=== PATIENT | female | born 1930 | race Caucasian/White ===

== ENCOUNTER 2017-05-16 02:11 | Inpatient (IN) | payer MEDICARE ==
[2017-05-16] MEDS ORDERED: Ondansetron HCl/PF 4 MG/2 ML Vial IVP PRN ×2 (05:59→07:36)
[2017-05-16] MEDS ORDERED: Ondansetron ODT 4 MG TAB SL PRN (05:59)
[2017-05-16] MEDS ORDERED: Sodium Chloride 0.9% 1,000 ML IV SCH (05:59)
[2017-05-16] MEDS ORDERED: Acetaminophen 325 MG TAB PO PRN ×2 (05:59→07:36)
[2017-05-16 06:09] VITALS: BMI 26.6
[2017-05-16] MEDS ORDERED: Milk Of Magnesia 30 ML UDCUP PO PRN (07:40)
[2017-05-16] MEDS ORDERED: Docusate 100 MG CAP PO PRN (07:40)
[2017-05-16] MEDS: Cyanocobalamin (Vitamin B-12) 1,000 MCG TAB PO SCH (08:41)
--- NOTE | 2017-05-16 08:41 | RAD ---
ABDOMEN TWO VIEWS CHEST ONE VIEW: History: 87-year-old female with abdominal pain and clinical concern for pancreatitis. Comparison: 05-07-17 FINDINGS: There is cardiomegaly with some bilateral vascular congestion and bilateral pleural effusions as well as some patchy bibasilar pulmonary parenchymal changes with little change from prior study. In the a bdomen, there is gas and fecal material in the colon. No evidence of large or small bowel obstruction . No overt calculus. IMPRESSION: Persistent cardiomegaly with some bilateral vascular congestion and patchy pleural and parenchymal op acity changes in the lung bases, essentially unchanged from 05-07-17. No significant acute process in the abdomen. POS: [facility]
[2017-05-16] MEDS ORDERED: Atorvastatin Calcium 40 MG TAB PO SCH (09:00)
[2017-05-16] MEDS ORDERED: Non-Formulary Item 1 EACH (Cyanocobalamin (Vitamin B-12) [Vitamin B12] 1,000 MCG) PO SCH (09:00)
[2017-05-16] MEDS: Lisinopril 10 MG TAB PO SCH (09:00)
[2017-05-16] MEDS ORDERED: CHOLECALCIFEROL PO SCH (09:00)
[2017-05-16] MEDS ORDERED: Lisinopril 20 MG TAB PO SCH (09:00)
[2017-05-16] MEDS: Enoxaparin Sodium 40 MG/0.4 ML SYRINGE SC SCH (09:01)
[2017-05-16] MEDS: Sodium Chloride 0.9% 1,000 ML IV SCH ×2 (09:02→18:16)
--- NOTE | 2017-05-16 09:51 | ULT ---
ULTRASOUND COMPLETE: HISTORY: Pancreatitis, chronic. COMPARISON: CT abdomen and pelvis 07/18/16. FINDINGS: Pancreas is unremarkable. There are a few calcifications in the pancreatic head. Hepatic echotexture is normal. The liver measures 14.5 cm in length. There is some gas within the l eft lobe of the liver. The spleen measures 7.9 x 5.2 x 5.4 cm. The gallbladder wall thickness is normal. The Cuenca's sign is negative. Common bile duct measures over 6 mm. The right kidney measures 11.1 x 4.55 cm and the left kidney measures 11.2 x 4.5 x 5.7 cm. There are multiple bilateral renal cysts. IMPRESSION: 1. Bilateral renal cysts. 2. Mildly dilated common bile duct containing some debris. Followup MRCP may be beneficial. POS: OFF
--- NOTE | 2017-05-16 12:41 | CON ---
DATE OF CONSULTATION: 05/16/2017 HISTORY OF PRESENT ILLNESS: The patient is an 87-year-old female patient of Dr. Yi's o was in her normal state of health until yesterday evening when she developed severe epigastric pain . She did not have any nausea or vomiting. She denies any weight loss, any fever, chills, any yi e in bowel function. The patient has had pancreatitis problems in the past and has been seen by Dr. Mccann in [place] in October of this year at which time she underwent ERCP and sphincterotomy. The p killian was recently hospitalized soon thereafter with pancreatitis. Last CT scan from 07/2016 just s howed pancreatitis. PAST MEDICAL HISTORY: Significant for recurrent pancreatitis, congestive heart failure, coronary art sophia disease, hypertension, gastroesophageal reflux disease. PAST SURGICAL HISTORY: Include coronary artery bypass, hysterectomy, ERCP and sphincterotomy, colon polyps. SOCIAL HISTORY: She does not smoke or drink. ALLERGIES: PENICILLIN. FAMILY HISTORY: Negative for GI or liver disease. MEDICATIONS: Show Aciphex 20 mg p.o. daily, vitamin B12 1000 mcg p.o. daily, atorvastatin 40 mg p.o. daily, Lasix 20 mg p.o. daily, metoprolol 50 mg p.o. daily, lisinopril 20 mg p.o. daily, aspirin 325 mg 1 p.o. daily, Advil p.r.n., vitamin D3 one p.o. daily. REVIEW OF SYSTEMS: Constitutional: No fever or chills, no weight loss. Eyes: No blurred vision, d ouble vision. ENT: No sore throat or earaches. Cardiovascular: No chest pain or palpitations. Pu lmonary: No shortness of breath, cough, or wheezing. Skin: No rashes. Neurologic: No numbness or seizure activity. PHYSICAL EXAMINATION: GENERAL: Shows an elderly white female in no acute distress. VITAL SIGNS: Temperature 98.2, pulse 60, respiratory rate 14, blood pressure 137/68. HEENT: Unremarkable. NECK: Supple. CHEST: Clear. CARDIOVASCULAR: Regular rate and rhythm without murmurs or gallops. ABDOMEN: Soft, tender in the upper abdomen without rebound or guarding. Bowel sounds are present an d normoactive. RECTAL: Deferred. EXTREMITIES: Normal. NEUROLOGIC: Nonfocal. LABORATORY DATA: Shows a normal chemistry panel except for an amylase of 507, lipase of 1268. CBC s hows hemoglobin of 9.3, hematocrit 25.1, white blood cell count of 16.4, platelet count is 328. Abdo nathaniel ultrasound shows mildly dilated common bile duct containing some debris. Followup MRCP may be beneficial. ASSESSMENT: 1. Recurrent pancreatitis. 2. Congestive heart failure. 3. Coronary artery disease. 4. Abnormal ultrasound showing debris in the common bile duct - I suspect this is not accurate findi ng considering the patient has normal LFTs and has undergone a previous sphincterotomy. RECOMMENDATIONS: 1. Serial H and H. 2. Serial amylase and lipase. 3. N.p.o. 4. Analgesics. 5. Aggressive IV fluids. 6. PPI. 7. Would consider trial of pancreatic enzyme replacement therapy once the patient resumes her diet.
[2017-05-16] MEDS ORDERED: Fentanyl 100 MCG/2 ML VIAL SLOW IVP PRN (13:26)
--- NOTE | 2017-05-16 14:06 | HP ---
PRIMARY CARE PHYSICIAN: Arianna Clarke D.O. CHIEF COMPLAINT: Abdominal pain. HISTORY OF PRESENT ILLNESS: Ms. Ovalle is a pleasant 87-year-old lady who was seen at [facility] on 05/16/2017. She was transferred here from the emergency room at [place]. She reports that she has a history of recurrent pancreatitis. She reports being hospitalized for 5 d ays in the hospital at [place] and being discharged home 8 days ago. She reports that she had epiga stric pain yesterday. She describes it as dull, 2/10, nonradiating, not accompanied by nausea or vom iting. She denies any fevers or chills. She denies any cough. REVIEW OF SYSTEMS: The following complete review of systems was negative, unless otherwise mentioned in the HPI or below: Constitutional: Weight loss or gain, ability to conduct usual activities. Sk in: Rash, itching. Eyes: Double vision, pain. ENT/Mouth: Nose bleeding, neck stiffness, pain, te nderness. Cardiovascular: Palpitations, dyspnea on exertion, orthopnea. Respiratory: Shortness of breath, wheezing, cough, hemoptysis, fever or night sweats. Gastrointestinal: Poor appetite, abdom inal pain, heartburn, nausea, vomiting, constipation, or diarrhea. Genitourinary: Urgency, frequenc y, dysuria, nocturia. Musculoskeletal: Pain, swelling. Neurologic/Psychiatric: Anxiety, depressio n. Allergy/Immunologic: Skin rash, bleeding tendency. PAST MEDICAL HISTORY: Significant for recurrent pancreatitis, ERCP, and sphincterotomy in 10/2016, c ongestive heart failure, coronary artery disease, hypertension, gastroesophageal reflux disease, aort ic fibrosis, and macrocytic anemia. PAST SURGICAL HISTORY: Significant for ERCP, sphincterotomy, coronary artery bypass graft surgery, h ysterectomy, and colon polyp removal. SOCIAL HISTORY: No history of tobacco use, alcohol use, or recreational drug use. FAMILY HISTORY: Diabetes mellitus and congestive heart failure in her mother, chronic kidney disease in her sister. ALLERGIES: ERYTHROMYCIN, PENICILLIN. CURRENT MEDICATIONS: Aspirin 325 mg daily, atorvastatin 20 mg daily, vitamin D3 2000 units 2 times a day, vitamin B12 1000 mcg daily, Colace 100 mg as needed, lisinopril 10 mg daily, Milk of Magnesia a s needed, and metoprolol succinate 25 mg daily. CODE STATUS: The patient is FULL CODE. PHYSICAL EXAMINATION: GENERAL: Ms. Ovalle is awake and alert, not in acute distress. VITAL SIGNS: Blood pressure is 119/57, pulse is 66. She is breathing at rate of 18 and saturating 9 4% on room air. She is afebrile. EYES: No scleral icterus. No conjunctival pallor. ENT: Moist mucosal membranes, no oropharyngeal erythema or exudates. NECK: Supple, nontender, normal range of movement. Trachea is midline. RESPIRATORY: Accessory muscles of breathing are not active. Chest wall movements are symmetric bila terally. LUNGS: Clear to auscultation without wheeze, rhonchi, or crepitations. CARDIOVASCULAR: S1 and S2 are heard, regular. Peripheral pulses are palpable. No carotid bruit, no pericardial rub. ABDOMEN: Soft, mild epigastric tenderness, no guarding or rigidity, bowel sounds heard, no hepatomeg karolyn, no splenomegaly. NEUROLOGIC: Cranial nerves II-XII intact. Deep tendon reflexes are 2+. MUSCULOSKELETAL: Power is 5/5 in all 4 extremities. SKIN: No rashes or subcutaneous nodules. LYMPHATIC: No cervical lymphadenopathy. PSYCHIATRIC: Normal mood, normal affect. The patient is oriented to person, place, and time. LABORATORY DATA: Ms. Ovalle's labs and investigations were reviewed. She has leukocytosis with 16, 400 white cells, of which 79% are neutrophils, macrocytic anemia with hemoglobin of 9.3, normal plate let count, normal electrolytes, normal AST, normal ALT, normal alkaline phosphatase, normal total oni irubin, elevated amylase of 507, and elevated lipase of 1268. ASSESSMENT AND PLAN: Ms. Ovalle is a pleasant 87-year-old lady who was seen at [facility] on 05/16[facility]2017. Her problem list includes: 1. Abdominal pain: Most likely secondary to recurrent pancreatitis. 2. Recurrent pancreatitis: The patient will be admitted to the hospital for further management incl uding intravenous fluids and pain medications. She will be kept n.p.o. Gastroenterology service aniceto l be consulted. Her lipase levels will be rechecked. 3. Coronary artery disease: Appears to be stable. 4. Congestive heart failure: Appears to be stable. 5. Gastroesophageal reflux disease: Stable. Many thanks for allowing me to participate in your patient's care. Please feel free to contact me wi any questions or concerns. LEVEL OF RISK: Moderate. LEVEL OF COMPLEXITY: Moderate.
[2017-05-16] MEDS: Atorvastatin Calcium 20 MG TAB PO SCH (20:09)
[2017-05-17] MEDS: Sodium Chloride 0.9% 1,000 ML IV SCH (00:20)
[2017-05-17 05:16] LABS: #Basophils 0.1 thou/uL (0.0-0.2); #Eosinphils 0.1 thou/uL (0.0-0.7); #Lymphocytes 1.4 thou/uL (1.20-3.40); #Monocytes 0.7 thou/uL (0.11-0.59); #Neutrophils 5.9 thou/uL (1.40-6.50); %Basophils 0.9 % (0.0-1.0); %Eosinophils 1.7 % (0.0-10.0); %Lymphocytes 17.4 % (21.0-51.0); %Monocytes 8.3 % (0.0-10.0); %Neutrophils 71.8 % (42.0-75.0); Mean Corpuscular HGB CONC 34.1 g/dL (32.0-36.0); Mean Corpuscular Hemoglobin 37.5 pg (27.0-31.0); Platelet Count 290 thou/uL (130-400); RBC Distribution Width 14.6 % (11.5-14.5); Red Blood Cell (RBC) Count 2.12 mill/uL (4.20-5.40); White Blood Cell (WBC) Count 8.2 thou/uL (4.8-10.8)
[2017-05-17 05:28] LABS: Anion Gap 12 mmol/L (10-20); BUN (Urea Nitrogen) 9 mg/dL (9.8-20.1); Calc. Creatinine Clearance 75 mL/min (70-130); Calcium 8.6 mg/dL (7.8-10.44); Carbon Dioxide 26 mmol/L (23-31); Chloride 104 mmol/L (98-107); Estimated GFR-MDRD Greater than 90; Glucose 98 mg/dL (83-110); Lipase 116 U/L (8-78); Sodium 138 mmol/L (136-145)
[2017-05-17] MEDS: Lisinopril 10 MG TAB PO SCH (09:00)
[2017-05-17] MEDS: Enoxaparin Sodium 40 MG/0.4 ML SYRINGE SC SCH (09:00)
[2017-05-17] MEDS: Cyanocobalamin (Vitamin B-12) 1,000 MCG TAB PO SCH (09:00)
--- NOTE | 2017-05-17 10:55 | PDOC.PN ---
- Subjective Encounter Start Date: 05/17/17 Encounter Start Time: 07:40 Pt seen for followup re: acute pancreatitis. Reports feeling better. - Objective Vital Signs & Weight: Vital Signs (12 hours) Temp Pulse Resp BP BP Pulse Ox 05/17/17 09:00 135/58 L 05/17/17 08:00 98.4 F 78 18 95 05/17/17 07:27 98.4 F 78 18 168/77 H 95 05/17/17 00:00 98.0 F 70 16 147/62 H 92 L Weight Admit Weight 167 lb 7 oz Weight 167 lb 7 oz I&O: 05/16/17 05/17/17 05/18/17 06:59 06:59 06:59 Intake Total 671 Balance 671 Result Diagrams: 05/17/17 04:39 05/17/17 04:39 Phys Exam - Physical Examination Constitutional: NAD HEENT: moist MMs Neck: supple Respiratory: clear to auscultation bilateral Cardiovascular: RRR Gastrointestinal: soft Mild epigastric tenderness, no guarding or rigidity Neurological: moves all 4 limbs Psychiatric: normal affect Skin: no rash Dx/Plan (1) Acute pancreatitis Code(s): K85.90 - ACUTE PANCREATITIS WITHOUT NECROSIS OR INFECTION, UNSP Status: Acute (2) CHF (congestive heart failure) Code(s): I50.9 - HEART FAILURE, UNSPECIFIED Status: Chronic (3) CAD (coronary artery disease) Code(s): I25.10 - ATHSCL HEART DISEASE OF [place] CORONARY ARTERY W/O ANG PCTRS Status: Chronic (4) HTN (hypertension) Code(s): I10 - ESSENTIAL (PRIMARY) HYPERTENSION Status: Chronic - Plan * . Clinically improving. Start clear fluid diet, advance as tolerated. Discontinue IV fluids. Monitor vital signs, titrate antihypertensives as needed. Start PPI. Review of Systems - Review of Systems Respiratory: negative: Cough, Dry, Shortness of Breath, Hemoptysis, SOB with Excertion, Pleuritic Pain, Sputum, Wheezing Cardiovascular: negative: chest pain, palpitations, orthopnea, paroxysmal nocturnal dyspnea, edema, light headedness Gastrointestinal: Abdominal Pain. negative: Nausea, Vomiting, Diarrhea, Constipation, Melena, Hematochezia - Medications/Allergies Allergies/Adverse Reactions: Allergies Allergy/AdvReac Type Severity Reaction Status Date / Time erythromycin base Allergy Verified 05/16/17 06:12 Penicillins Allergy Verified 05/16/17 06:12 Medications: Current Medications Acetaminophen (Tylenol) 650 mg PO Q4H PRN PRN Reason: Headache/Fever or Pain Atorvastatin Calcium (Lipitor) 20 mg PO HS COUNT INCLUDES THE [facility] Last Admin: 05/16/17 20:09 Dose: 20 mg Cholecalciferol (Vitamin D3) 2,000 units PO DAILY COUNT INCLUDES THE [facility] Last Admin: 05/17/17 09:00 Dose: 2,000 units Cyanocobalamin (Vitamin B-12) 1,000 mcg PO DAILY COUNT INCLUDES THE [facility] Last Admin: 05/17/17 09:00 Dose: 1,000 mcg Docusate Sodium (Colace) 100 mg PO PRN PRN PRN Reason: Constipation Enoxaparin Sodium (Lovenox) 40 mg SC 0900 COUNT INCLUDES THE [facility] Last Admin: 05/17/17 09:00 Dose: 40 mg Fentanyl (Sublimaze) 6.25 mcg SLOW IVP Q8H PRN PRN Reason: Pain Sodium Chloride (Normal Saline 0.9%) 1,000 mls @ 70 mls/hr IV .[id number] COUNT INCLUDES THE [facility] Last Admin: 05/17/17 00:20 Dose: Not Given Lisinopril (Zestril) 10 mg PO DAILY COUNT INCLUDES THE [facility] Last Admin: 05/17/17 09:00 Dose: 10 mg Magnesium Hydroxide (Milk Of Magnesium) 30 ml PO DAILYPRN PRN PRN Reason: Constipation Metoprolol Succinate (Toprol Xl) 25 mg PO DAILY COUNT INCLUDES THE [facility] Last Admin: 05/17/17 09:05 Dose: 25 mg Ondansetron HCl (Zofran) 4 mg IVP Q6H PRN PRN Reason: Nausea/Vomiting Pantoprazole Sodium (Protonix) 40 mg PO Q24HR COUNT INCLUDES THE [facility] Sodium Chloride (Flush - Normal Saline) 10 ml IVF Q12HR COUNT INCLUDES THE [facility] Last Admin: 05/17/17 09:01 Dose: Not Given Sodium Chloride (Flush - Normal Saline) 10 ml IVF PRN PRN PRN Reason: Saline Flush
--- NOTE | 2017-05-17 14:02 | PRG ---
DATE OF SERVICE: 05/17/2017 SUBJECTIVE: The patient is doing well today. She denies any abdominal pain, nausea, or vomiting. S he is tolerating clear liquids. OBJECTIVE: VITAL SIGNS: Temperature 98.4, pulse 75, respirations 20, blood pressure 150/66. CHEST: Clear. CARDIOVASCULAR: Regular rate and rhythm. ABDOMEN: Benign. LABORATORY DATA: Shows a lipase of 116, hemoglobin 8.0, hematocrit 23.3 with MCV of 110. Previous v itamin B12 and folate levels were normal. ASSESSMENT: 1. Acute on chronic pancreatitis. 2. Anemia. RECOMMENDATIONS: 1. Advance diet. 2. Pancreatic enzyme supplementation. 3. Follow hemoglobin and hematocrit. 4. Dr. Harding is covering, call if needed. 5. Have the patient follow up with Dr. Mariano as an outpatient.
[2017-05-17] MEDS: Pancrelipase DR 12000 1 CAP PO SCH (16:41)
[2017-05-17] MEDS ORDERED: Pancrelipase DR 12000 1 CAP PO SCH (17:00)
[2017-05-17] MEDS: Atorvastatin Calcium 20 MG TAB PO SCH (20:33)
[2017-05-18 04:36] LABS: #Basophils 0.1 thou/uL (0.0-0.2); #Eosinphils 0.1 thou/uL (0.0-0.7); #Lymphocytes 2.1 thou/uL (1.20-3.40); #Monocytes 0.9 thou/uL (0.11-0.59); #Neutrophils 3.8 thou/uL (1.40-6.50); %Eosinophils 1.5 % (0.0-10.0); %Lymphocytes 29.8 % (21.0-51.0); %Monocytes 12.9 % (0.0-10.0); %Neutrophils 54.8 % (42.0-75.0); Hemoglobin 8.2 g/dL (12.0-16.0); Mean Corpuscular HGB CONC 33.9 g/dL (32.0-36.0); Mean Corpuscular Hemoglobin 37.1 pg (27.0-31.0); Mean Platelet Volume 8.2 fL (7.4-10.4); Platelet Count 317 thou/uL (130-400); RBC Distribution Width 14.7 % (11.5-14.5); White Blood Cell (WBC) Count 6.9 thou/uL (4.8-10.8)
[2017-05-18 04:53] LABS: Anion Gap 11 mmol/L (10-20); BUN (Urea Nitrogen) 10 mg/dL (9.8-20.1); Calc. Creatinine Clearance 75 mL/min (70-130); Calcium 8.8 mg/dL (7.8-10.44); Carbon Dioxide 25 mmol/L (23-31); Chloride 105 mmol/L (98-107); Estimated GFR-MDRD Greater than 90; Glucose 104 mg/dL (83-110); Lipase 52 U/L (8-78); Potassium 3.8 mmol/L (3.5-5.1); Sodium 137 mmol/L (136-145)
[2017-05-18 08:17] VITALS: BP 129/53; TEMP 98.8
[2017-05-18] MEDS: Pancrelipase DR 12000 1 CAP PO SCH (08:22)
[2017-05-18] MEDS: Lisinopril 10 MG TAB PO SCH (08:23)
[2017-05-18] MEDS: Enoxaparin Sodium 40 MG/0.4 ML SYRINGE SC SCH (08:24)
[2017-05-18] MEDS: Cyanocobalamin (Vitamin B-12) 1,000 MCG TAB PO SCH (08:24)
--- NOTE | 2017-05-18 14:03 | DIS ---
DATE OF ADMISSION: 05/16/2017 DATE OF DISCHARGE: 05/18/2017 PRIMARY CARE PHYSICIAN: Arianna Clarke D.O. DISCHARGE DIAGNOSIS: Acute pancreatitis, recurrent. CONDITION OF PATIENT ON THE DAY OF DISCHARGE: Stable. I assessed Ms. Ovalle on the day of discharg e. She denies any chest pain or shortness of breath. She denies any abdominal pain. She is tolerat ing diet well. PHYSICAL EXAMINATION: VITAL SIGNS: Stable. HEART: S1 and S2 are heard, regular. LUNGS: Clear to auscultation bilaterally. ABDOMEN: Soft, nontender. Bowel sounds are heard. DISCHARGE MEDICATIONS: Pancrelipase 2 capsules 3 times a day with meals, Protonix 40 mg daily, metop rolol succinate 25 mg daily, Milk of Magnesia p.r.n., lisinopril 10 mg daily, docusate 100 mg as need ed, vitamin B12 1000 mcg daily, vitamin D3 2000 units 2 times a day, atorvastatin 20 mg daily, and as pirin 325 mg daily as needed. HOSPITAL COURSE: Ms. Ovalle is a pleasant 87-year-old lady who was admitted to [facility] for recurrent acute pancreatitis on 05/16/2017. She had an abdominal ultrasound done, which showed bilateral renal cyst and mildly dilated common bile duct containing some debris. She wa s seen by Gastroenterology Service, who felt that finding was not accurate because patient had normal LFTs and has undergone previous sphincterotomy. He recommended starting her on PPI as well as trial of pancreatic enzyme replacement therapy once the patient resumes her diet. She improved clinically during this hospitalization. Her lipase went from 1268 on 05/15/2017 to 52 o n 05/18/2017. She was tolerating diet well. She is being discharged home in a stable condition. CONSULTATIONS DURING THIS HOSPITALIZATION: Gastroenterology, Dr. Pernell Del Castillo. LABORATORY DATA: On the day of discharge, she has normal chem-7, normal lipase, white count 6,900, h emoglobin 8.2, and platelet count 317,000. Many thanks for allowing me to participate in your patient's care. Please feel free to contact me wi th any questions or concerns. DISCHARGE DESTINATION: Home. TOTAL AMOUNT OF TIME SPENT COORDINATING THIS DISCHARGE: 26 minutes.
--- NOTE | 2017-07-11 15:08 | EKG ---
Test Reason : Blood Pressure : / mmHG Vent. Rate : 066 BPM Atrial Rate : 066 BPM P-R Int : 182 ms QRS Dur : 086 ms QT Int : 468 ms P-R-T Axes : 079 -27 002 degrees QTc Int : 490 ms Sinus rhythm with occasional Premature ventricular complexes Minimal voltage criteria for LVH, may be normal variant Possible Anterior infarct , age undetermined Abnormal ECG Confirmed by LUCA ISAAC D.O. ([id number]), movie editor BROOKE SERRANO ([id number] on 07/11/2017 3:07:17 PM Referred By: Confirmed By:LUCA ISAAC D.O.
== END 2017-05-18 11:17 | disposition home or self-care (01) | DRG 440 ==
LOC: EDBD → ERS 02:11 → T4-B 04:00
PROVIDERS: ADMIT Internal Medicine; ATTEND Internal Medicine
DX: K85.90 Acute pancreatitis without necrosis or infection, unspecified (principal); I11.0 Hypertensive heart disease with heart failure; I50.9 Heart failure, unspecified; D64.9 Anemia, unspecified; Z95.1 Presence of aortocoronary bypass graft; K86.1 Other chronic pancreatitis; I25.10 Atherosclerotic heart disease of native coronary artery without angina pectoris; K21.9 Gastro-esophageal reflux disease without esophagitis
CPT/HCPCS: 36415; 74022; 76700; 80048; 83690; 85025; 93005; A4216; J1650

== ENCOUNTER 2017-09-21 12:07 | Inpatient (IN) | payer MEDICARE ==
[2017-09-21 12:37] LABS: #Basophils 0.1 thou/uL (0.0-0.2); #Eosinphils 0.1 thou/uL (0.0-0.7); #Lymphocytes 1.4 thou/uL (1.20-3.40); #Neutrophils 4.8 thou/uL (1.40-6.50); %Eosinophils 0.9 % (0.0-10.0); %Lymphocytes 19.1 % (21.0-51.0); %Monocytes 14.1 % (0.0-10.0); Hemoglobin 10.4 g/dL (12.0-16.0); Mean Corpuscular HGB CONC 34.5 g/dL (32.0-36.0); Mean Corpuscular Hemoglobin 37.4 pg (27.0-31.0); Mean Platelet Volume 8.1 fL (7.4-10.4); Platelet Count 274 thou/uL (130-400); RBC Distribution Width 14.4 % (11.5-14.5); Red Blood Cell (RBC) Count 2.78 mill/uL (4.20-5.40); White Blood Cell (WBC) Count 7.3 thou/uL (4.8-10.8)
[2017-09-21 12:57] LABS: ALT (SGPT) 8 U/L (8-55); AST (SGOT) 11 U/L (5-34); Albumin 4.3 g/dL (3.4-4.8); Alkaline Phosphatase 56 U/L (40-150); Anion Gap 10 mmol/L (10-20); BUN (Urea Nitrogen) 16 mg/dL (9.8-20.1); Bilirubin, Total 1.3 mg/dL (0.2-1.2); Calc. Creatinine Clearance 0 mL/min (70-130); Calcium 9.3 mg/dL (7.8-10.44); Carbon Dioxide 27 mmol/L (23-31); Chloride 106 mmol/L (98-107); Estimated GFR-MDRD 78; Globulin 2.5 g/dL (2.4-3.5); Glucose 128 mg/dL (83-110); Lipase 218 U/L (8-78); Potassium 3.9 mmol/L (3.5-5.1); Protein, Total 6.8 g/dL (6.0-8.3); Sodium 139 mmol/L (136-145)
[2017-09-21] MEDS ORDERED: Ondansetron ODT 4 MG TAB ONE (13:04)
[2017-09-21 13:09] LABS: Bilirubin Small (Negative); Blood, Urine Negative (Negative); Clarity CLEAR (Clear); Glucose, Urine (Dipstick) Negative (Negative); Leukocyte Moderate (Negative); Nitrite Negative (Negative); Protein, Urine (Dipstick) Negative (Neg-Trace); Specific Gravity, Urine 1.024 (1.002-1.036); pH, Urine 5.5 (5.0-9.0)
[2017-09-21 13:11] LABS: Bacteria/HPF None Seen HPF (None Seen); Hyaline Casts/LPF 4-6 HYALINE CAST LPF (0-3 Hyaline); Pathc Cast-AUWi Flag 1.59 (0-2.49); Squamous Epithelial 0-3 HPF (0-3)
[2017-09-21 13:26] LABS: RBC/HPF 0-3 HPF (0-3)
[2017-09-21] MEDS ORDERED: cefTRIAXone\\ROCEPHIN 1 GM VIAL ONE (13:48)
--- NOTE | 2017-09-21 14:17 | CT ---
CT ABDOMEN AND PELVIS WITH IV CONTRAST: TECHNIQUE: Multiple axial tomograms were obtained through the abdomen and pelvis with IV enhancement. INDICATION: Abdominal pain. History of pancreatitis. COMPARISON: Comparison is made to an abdominal CT of 09/06/14 which did demonstrate pancreatitis involving the odell creatic body and tail. Mild prominence of the pancreatic duct. Correlation is also made to MRI of abdomen of 02/24/16. FINDINGS: Parenchymal haziness in the left lung base consistent with either atelectasis or infiltrate. There is pneumobilia seen in the liver with air in the biliary ducts. There is gas seen in the commo n bile duct and in the cystic duct. A tiny amount of air in the pancreatic ducts. Correlate regardi ng prior history of sphincterotomy in this patient that would explain the pneumobilia. There is a 1 cm calculus in the head of the pancreas which appears to be obstructing the pancreatic d uct. There is significant dilatation of the pancreatic duct to this calcification. There appears to be mild inflammatory change involving the body and tail of the pancreas and I cannot exclude early p ancreatitis. Adrenal glands unremarkable. Kidneys show no hydronephrosis. There are bilateral renal cysts which appear stable from the prior e xam. Small bowel loops are normal caliber. Colon unremarkable. Urinary bladder unremarkable. Aorta is c alcified but normal caliber. IMPRESSION: 1. Pneumobilia. Correlate regarding history of prior sphincterotomy that would explain this finding . 2. Dilated pancreatic duct with evidence of a 1 cm stone in the head of the pancreas which appears t o be obstructing this duct. 3. Mild inflammatory changes surrounding the body and tail of the pancreas. Pancreatitis cannot be excluded. No significant fluid or pseudocyst. 4. Bilateral renal cystic lesions appear stable. 5. Atelectasis and/or infiltrate in the left lung base. POS: [facility]
[2017-09-21 16:01] VITALS: BMI 25.2
[2017-09-21] MEDS ORDERED: Sodium Chloride 0.9% 1,000 ML IV SCH (16:15)
[2017-09-21] MEDS ORDERED: ISOVUE-370 76%-LOCM 1 ML ONE (16:39)
[2017-09-21] MEDS ORDERED: Aspirin 325 MG TAB PO PRN (17:44)
--- NOTE | 2017-09-21 18:55 | RAD ---
TWO VIEWS OF THE CHEST: 09/21/17 COMPARISON: 09/08/14 HISTORY: Evaluate lung parenchyma, abnormal CT examination. FINDINGS: The cardiac silhouette is enlarged. There is atherosclerotic calcification in the aortic arch with to rtuosity of the descending thoracic aorta. Midline sternotomy wires are present. There is mild increa sed linear density in the lung bases, left greater than right, nonspecific. There is no pneumothorax, pleural fluid, focal consolidation, or alveolar edema. IMPRESSION: Mild increased linear density in the lung bases, left greater than right. Findings may signify infect ious pneumonitis or scar/volume loss. No lobar consolidation or alveolar edema is evident. POS: [facility]
--- NOTE | 2017-09-21 20:25 | CON ---
DATE OF CONSULTATION: 09/21/2017 REASON FOR CONSULTATION: Acute on chronic pancreatitis. HISTORY OF PRESENT ILLNESS: Xochilt Ovalle is a very pleasant 87-year-old woman, a patient of my GI colleague, Dr. Cindy Mariano. She has a past medical history of chronic pancreatitis, but with multiple acute exacerbations over the past several years. She has undergone cholecystectomy in the past. In 09/2015 , she was seen by Dr. Mckee at [facility] in [place] for ERCP. 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 She underwent a dilation of her pancreatic duct stricture as well as pancreatic duct stent placement. In 2016, she was seen again by Dr. Mckee for ERCP and at that time was found to have some sludge and stones in the common bile duct. She underwent repeat biliary sphincterotomy and balloon sweep of the bile duct with multiple stones removed. She has been hospitalized here since then in April and May of 2017, both times with mild episode of acute exacerbation of pancreatitis treated conservatively. She has recently been started on Creon tablets and felt that she had been doing quite well until the past couple of days. She denies any chronic symptoms between attacks. She reports that for the past 2 days, she has had slowly escalating characteristic pain in the epigastrium which became unbearable today and prompted her presentation. There has been no nausea or vomiting with this. No change in bowel habits. She has a bowel movement about every 3 days with no melena or hematochezia. With this episode, there has been no fever, no presyncopal symptoms. She has received morphine in the ER and feels only marginal improvement in her pain. Laboratory studies show only a mild elevation of total bilirubin to 1.3, but otherwise normal LFTs. Her lipase is very mildly elevated to 218, but a CT of the abdomen and pelvis demonstrates what appears to be a 1 cm calculus in the pancreatic head as well as pancreatic ductal dilation, which was read as possibly related to obstruction from the stone. There is mild inflammatory stranding around the pancreatic body and tail and the scan is otherwise normal. The patient is currently being admitted to the hospital for pain control and treatment of pancreatitis. She is n.p.o. now. REVIEW OF SYSTEMS: Full review of systems including constitutional, head, eyes , ears, nose, throat, GI, , cardiovascular, respiratory, musculoskeletal, and neurologic systems is negative except as noted in the HPI. PAST MEDICAL HISTORY: Recurrent pancreatitis, congestive heart failure, coronary artery disease, hypertension, gastroesophageal reflux disease, coronary artery bypass, hysterectomy, colon polyps, ERCP with pancreatic duct stent in 09/2015, ERCP with repeat biliary sphincterotomy and common bile duct sweep on 10/2016, cholecystectomy. SOCIAL HISTORY: No smoking or alcohol use. FAMILY HISTORY: Negative for GI or liver disease. ALLERGIES: PENICILLIN. MEDICATIONS: Aciphex, vitamin B12, atorvastatin, Lasix, metoprolol, lisinopril , aspirin, Advil p.r.n., vitamin D3, Creon tablets with meals. PHYSICAL EXAMINATION: VITAL SIGNS: Pulse 59, blood pressure 134/107. GENERAL: An 87-year-old woman lying in bed, in mild distress from abdominal pain. SKIN: No jaundice, no rashes were palpable. EYES: No scleral icterus. Extraocular movements intact. ENT: Mucous membranes moist, no oral lesions. LYMPH: No submandibular or supraclavicular lymphadenopathy. THYROID: Nontender to palpation. HEART: Regular rate and rhythm. LUNGS: Clear to auscultation bilaterally. ABDOMEN: Nondistended. Bowel sounds are present. The abdomen is soft. There is tenderness to palpation in the epigastrium, nontender elsewhere in the abdomen. No guarding, rebound tenderness. EXTREMITIES: No peripheral edema. VESSELS: Radial pulses 2+ bilaterally. NEUROLOGICAL: Cranial nerves II-XII intact bilaterally. No focal deficits. LABORATORY STUDIES: WBC 7.3, hemoglobin 10.4, platelets 274. Sodium 139, potassium 3.9, BUN 16, creatinine 0.71. Lipase is elevated to 218. Total bilirubin 1.3, otherwise normal LFTs with alkaline phosphatase 56, AST 11, ALT 8 , albumin 4.3. Urinalysis shows moderate leukocyte esterase. IMAGING STUDIES: CT of the abdomen and pelvis demonstrates pneumobilia, which is consistent with prior biliary sphincterotomy. There was a 1 cm calculus in the pancreatic head and dilation of the main pancreatic duct which was interpreted as possible obstruction from the calculus. There are mild inflammatory changes around the pancreatic body and tail. The CT is otherwise normal. ASSESSMENT AND PLAN: 1. Acute on chronic pancreatitis. 2. Pancreatic duct calculus. Given the relatively low lipase as well as prior imaging findings demonstrating pancreatic duct stricture with proximal dilation, I doubt that there is complete pancreatic duct obstruction by this calculus. My impression would be that these are more chronic findings. Her pain is characteristic and consistent with her prior episodes of pancreatitis, but otherwise clinical and laboratory parameters are favorable. At this time, I would recommend supportive care with n.p.o. status, IV fluids and analgesia as needed. I would hope and anticipate that this acute episode would resolve within the next 2-3 days, as have her prior episodes. Regarding possible intervention on the pancreatic duct calculus, we really do not have specific pancreatic ductal intervention expertise here. I do think the patient would benefit from repeat ERCP at [facility] with Dr. Mckee in the coming weeks. We will try to help arrange for this following hospital discharge. There does not appear to be any urgent indication for ERCP at this time. Thank you for the consultation. GI can follow along. ANTONIA
[2017-09-21] MEDS: Famotidine/PF 20 mg/2ml Vial SLOW IVP SCH (21:39)
--- NOTE | 2017-09-21 21:46 | HP ---
CHIEF COMPLAINT: Abdominal pain. HISTORY OF PRESENT ILLNESS: This patient is an 87-year-old female who has a history of significant p ancreatic disease. Patient was most recently admitted here in May with similar symptoms. Appar ently, the patient has history of recurrent pancreatitis and saw Dr. Toscano in [facility] [place] for an ERCP and sphincterotomy as recently as 10/2016. She was admitted in May with evidence of sludge in h er pancreatic duct and pancreatitis. At that time, she was seen by GI here and they felt that it was likely not obstruction because of the normal liver enzymes. The patient was treated with conservati ve management and be placed on pancreatic enzymes following her discharge. She was also treated with PPI. She had a very short stay. Her daughter indicates that she typically has some type of these s ymptoms every 6 months going back to 2014. Patient reports that she was in her usual state of relati vely good health until 2 days ago when she had the sudden onset of epigastric pain that has been a st valerie crescendo since that time. She states it is not sharp, but dull and gradually worsening. Pain is located in the epigastrium. She has had no fevers, chills, nausea, vomiting. Currently, she is i mproved with her pain after receiving several doses of morphine. REVIEW OF SYSTEMS: A 10 point review of systems was negative other than those things mentioned in th e history of present illness. The patient does actually report that she has some mild hearing issues , but they are very benign. PAST MEDICAL HISTORY: As noted above, significant for the recurrent pancreatitis with ERCP and sphin cterotomy. She had a history of congestive heart failure, coronary artery disease, hypertension, gas troesophageal reflux, aortic fibrosis and macrocytic anemia. PAST SURGICAL HISTORY: ERCP with sphincterotomy, coronary artery bypass graft, hysterectomy, colon p olyp removal. FAMILY HISTORY: Notable for congestive heart failure in her mother, chronic kidney disease in her si ster and diabetes in her mother. SOCIAL HISTORY: Patient is a nonsmoker, nondrinker, nondrug user. She is . She reports that her daughter would be her surrogate decision maker. She also reports that she would like to have fu ll resuscitative efforts unless it is determined that she would be terminal and does not want anythin g long-term. ALLERGIES: ERYTHROMYCIN BASE, and PENICILLIN. HOME MEDICATIONS: Atorvastatin 20 mg p.o. every day, aspirin 325 every day, vitamin D3 two p.o. constantin y, B12 of 1000 mcg p.o. daily, Prinivil 10 mg daily, Colace 100 mg daily p.r.n., metoprolol 25 mg argelia ly, pantoprazole 40 mg p.o. daily, and Creon 12,000 units 2 p.o. t.i.d. with meals. PHYSICAL EXAMINATION: VITAL SIGNS: Temperature 96.8, pulse 73, respirations 18, O2 sats 95% on room air, BP ranged from 12 9/53-170/65. GENERAL APPEARANCE: Age appropriate female. She is in no distress. She is awake, alert, and orient ed, pleasant, cooperative. HEENT: PERRL. No OP lesions. NECK: Supple and symmetric with no lymphadenopathy or JVD. CARDIOVASCULAR: Regular but in a trigeminal type pattern. No murmurs. LUNGS: Clear to auscultation bilaterally. ABDOMEN: Soft and nondistended. There is significant tenderness to palpation with some voluntary gu arding in the epigastric region. EXTREMITIES: Warm and dry with no edema. LABORATORY DATA: White count 7.3, hemoglobin 10.4, MCV 108, platelets 274. Chemistries are normal e xcept for a glucose of 128 and a total bilirubin of 1.3, AST is 11, ALT is 8, alkaline phosphatase 56 , albumin 4.3, lipase is 218. Urinalysis shows small bilirubin, moderate leukocyte esterase with 7-1 0 white cells and 0-[address] of the abdomen and pelvis reveals a 1-cm calculus in the head of the pancreas which appears to be obstructing the pancreatic duct. There is significant dilatation o f the pancreatic duct to the calcification. There appears to be mild inflammatory changes involving the body and tail of the pancreas and pancreatitis cannot be excluded. Otherwise, no acute findings. IMPRESSION AND PLAN: 1. Abdominal pain in a patient with a history of recurrent pancreatitis who has a CAT scan indicatin g there is a duct stone in the head of the pancreas causing some ductal obstruction and likely pancre atitis. The patient will be admitted. She will be on IV fluids. She will have pain control with mo rphine. The key account executive will be consulted. We will continue with acid suppressant medication s in the meantime. 2. History of coronary artery disease. We will try to keep her on her aspirin, even though she is g enerally going to be n.p.o. We will also maintain the AYAN inhibitor and the beta debora. 3. Hypertension. Continue with the metoprolol and lisinopril. 4. History of macrocytosis. Her counts appear to be stable. No intervention indicated.
[2017-09-22] MEDS: Famotidine/PF 20 mg/2ml Vial SLOW IVP SCH ×2 (09:27→20:22)
[2017-09-22] MEDS: Lisinopril 10 MG TAB PO SCH (09:28)
--- NOTE | 2017-09-22 10:56 | PRG ---
DATE OF SERVICE: 09/22/2017 SUBJECTIVE: Ms. Ovalle has no new complaints. She continues to have pain in the epigastrium, which she says is a bit better, but she did receive morphine overnight, last administration was about 3 ho urs ago. She says she is feeling hungry and not nauseated, but the pain does remain constant. She h as remained hemodynamically stable. PHYSICAL EXAMINATION: VITAL SIGNS: Temperature 98.6, pulse 62, blood pressure 125/62, 94% oxygen saturation on room air. GENERAL: No acute distress. HEART: Regular rate and rhythm. LUNGS: Clear to auscultation bilaterally. ABDOMEN: Bowel sounds are present, soft, tender to palpation in the epigastrium, but no guarding, re bound tenderness. EXTREMITIES: No peripheral edema. LABORATORY STUDIES: No new labs this morning. ASSESSMENT AND PLAN: 1. Acute on chronic pancreatitis. 2. Pancreatic duct calculus. Continue with supportive care, clinical parameters and initial laboratory parameters were all favorab le. I think that if her pain medicine requirements have declined by the end of the day, she could po tentially be started on a clear liquid diet to see how she tolerates this. We would recheck LFTs and lipase tomorrow. We will still plan for outpatient re-referral back to Dr. Mckee in [place] on an outpatient basis following discharge.
--- NOTE | 2017-09-22 13:46 | PDOC.PN ---
- Subjective Encounter Start Date: 09/22/17 Encounter Start Time: 13:44 NURSE REPORTS THAT THE PATIENT GOT A LITTLE CONFUSED WITH THE MORPHINE. SHE TOOK OUT HER IV AND GOT DRESSED TO LEAVE. CURRENTLY THE PATIENT HAS SOME INSIGHT. SHE DOES CONTINUE TO HAVE SOME PAIN, BUT IT IS BETTER. - Objective Resuscitation Status: Resuscitation Status FULL:Full Resuscitation MAR Reviewed: Yes Vital Signs & Weight: Vital Signs (12 hours) Temp Pulse Resp BP Pulse Ox 09/22/17 12:10 98.4 F 74 18 113/69 93 L 09/22/17 07:25 98.6 F 62 14 125/62 94 L 09/22/17 04:22 98.4 F 73 16 150/54 H 94 L Weight Admit Weight 156 lb 5.488 oz Weight 156 lb 5.488 oz I&O: 09/21/17 09/22/17 09/23/17 06:59 06:59 06:59 Intake Total 0 Balance 0 Result Diagrams: 09/21/17 12:28 09/21/17 12:28 Phys Exam - Physical Examination Constitutional: NAD Neck: no JVD, supple Respiratory: no wheezing, no rales, no rhonchi, clear to auscultation bilateral Cardiovascular: RRR, no significant murmur Gastrointestinal: soft, no distention TTP IN EPIGASTRIUM. NO GUARDING Musculoskeletal: no edema Neurological: non-focal Deviation from normal: PATIENT IS ORIENTED TO PERSON AND PLACE. ESSENTIALLY BASELINE. Skin: no rash, normal turgor Dx/Plan (1) Pancreatic duct calculus Code(s): K86.89 - OTHER SPECIFIED DISEASES OF PANCREAS Status: Acute Plan: GI FOLLOWING. BELIEVE THE STONE IS NOT COMPLETELY OBSTRUCTING. REC. TREATMENT LIKE USUAL PANCREATITIS. NEEDS OUTPATIENT FOLLOW UP IN [place]. (2) Acute pancreatitis Code(s): K85.90 - ACUTE PANCREATITIS WITHOUT NECROSIS OR INFECTION, UNSP Status: Acute Plan: FLUIDS, PAIN MEDS AND BOWEL REST. RECHECK LIPASE AND LFT'S IN AM. (3) CAD (coronary artery disease), [place] coronary artery Code(s): I25.10 - ATHSCL HEART DISEASE OF [place] CORONARY ARTERY W/O ANG PCTRS Status: Chronic Plan: CONTINUE BETA FABOI AND ASA. (4) Essential hypertension Code(s): I10 - ESSENTIAL (PRIMARY) HYPERTENSION Status: Acute Plan: CONTINUE ACEI, BETA FABIO. (5) Macrocytosis Code(s): D75.89 - OTHER SPECIFIED DISEASES OF BLOOD AND BLOOD-FORMING ORGANS Status: Acute - Plan * ABOVE.
[2017-09-22] MEDS: Sodium Chloride 0.9% 1,000 ML IV SCH ×2 (15:10→17:59)
[2017-09-23] MEDS: Sodium Chloride 0.9% 1,000 ML IV SCH ×3 (03:52→21:13)
[2017-09-23 05:50] LABS: ALT (SGPT) 9 U/L (8-55); AST (SGOT) 13 U/L (5-34); Albumin 3.6 g/dL (3.4-4.8); Alkaline Phosphatase 48 U/L (40-150); Anion Gap 13 mmol/L (10-20); BUN (Urea Nitrogen) 12 mg/dL (9.8-20.1); Bilirubin, Total 1.8 mg/dL (0.2-1.2); Calc. Creatinine Clearance 78 mL/min (70-130); Calcium 8.4 mg/dL (7.8-10.44); Carbon Dioxide 20 mmol/L (23-31); Chloride 106 mmol/L (98-107); Estimated GFR-MDRD Greater than 90; Globulin 2.2 g/dL (2.4-3.5); Glucose 92 mg/dL (83-110); Lipase 26 U/L (8-78); Potassium 3.5 mmol/L (3.5-5.1); Protein, Total 5.8 g/dL (6.0-8.3); Sodium 135 mmol/L (136-145)
--- NOTE | 2017-09-23 08:17 | PRG ---
DATE OF SERVICE: 09/23/2017 SUBJECTIVE: Ms. Ovalle says she is feeling pretty well this morning. She was able to get good slee p last night. She has not required any morphine for the past 24 hours. She says her abdominal pain is much improved, though it is oil process stillman to palpation. She is not really hungry, but she has had no nausea or vomiting. No bowel movement. Lipase has trended down to normal. OBJECTIVE: VITAL SIGNS: Temperature 98.5, pulse 77, blood pressure 160/53, 95% oxygen saturation on room air. GENERAL: No acute distress. HEART: Regular rate and rhythm. LUNGS: Clear to auscultation bilaterally. ABDOMEN: Bowel sounds are present. The abdomen is soft. There is tenderness to palpation in the ep igastrium, but no guarding or rebound tenderness. EXTREMITIES: No peripheral edema. LABORATORY STUDIES: Sodium 135, potassium 3.5, BUN 12, creatinine 0.55, total bilirubin 1.8, alkalin e phosphatase 48, AST 13, ALT 9, albumin 3.6, lipase has normalized down to 26. WBC 7.3, hemoglobin 10.4, hematocrit 30.1, platelets 274. ASSESSMENT AND PLAN: 1. Acute on chronic pancreatitis. It appears her acute episode is resolving. Lipase is normalized and abdominal pain is much improved. I will write for clear liquid diet this morning. If she tolera chip this, I think the diet could be rapidly advanced as tolerated, and when she is tolerating oral in take, she can be discharged from the hospital. 2. Pancreatic duct calculus. Our office will arrange for referral back to Dr. Mckee in [facility] consideration of repeat ERCP, due to recurrent episodes of pancreatitis with pancreatic duct calcul us. No plan for urgent ERCP, and no need for hospital transfer. This can be done on an outpatient b asis.
[2017-09-23] MEDS: Famotidine/PF 20 mg/2ml Vial SLOW IVP SCH ×2 (09:36→21:08)
[2017-09-23] MEDS: Lisinopril 10 MG TAB PO SCH (09:37)
--- NOTE | 2017-09-23 09:45 | PDOC.PN ---
- Subjective Encounter Start Date: 09/23/17 Encounter Start Time: 07:20 Pt seen for followup re: acute pancreatitis. Feels better. Abdo pain better. No nausea or vomiting. No fevers or chills. No chest pain or shortness of breath. - Objective Resuscitation Status: Resuscitation Status FULL:Full Resuscitation MAR Reviewed: Yes Vital Signs & Weight: Vital Signs (12 hours) Temp Pulse Resp BP Pulse Ox 09/23/17 07:16 99.2 F 82 14 158/67 H 94 L 09/23/17 00:01 98.5 F 77 16 160/53 H 95 Weight Admit Weight 156 lb 5.488 oz Weight 156 lb 5.488 oz I&O: 09/22/17 09/23/17 09/24/17 06:59 06:59 06:59 Intake Total 0 2014 Balance 0 2014 Result Diagrams: 09/21/17 12:28 09/23/17 04:35 Additional Labs: Labs reviewed by me Phys Exam - Physical Examination Constitutional: NAD HEENT: moist MMs, sclera anicteric, oral pharynx no lesions, 2+ tonsils Neck: no nodes, no JVD, supple, full ROM Respiratory: no wheezing, no rales, no rhonchi, clear to auscultation bilateral Cardiovascular: RRR, no rub S1, S2 Gastrointestinal: soft, no distention, positive bowel sounds mild epigastric tenderness, no guarding or rigidity Neurological: moves all 4 limbs Psychiatric: normal affect, A&O x 3 Dx/Plan (1) Acute pancreatitis Code(s): K85.90 - ACUTE PANCREATITIS WITHOUT NECROSIS OR INFECTION, UNSP Status: Acute Comment: Improving, lipase normal. Pt on clear fluid diet. (2) CAD (coronary artery disease) Code(s): I25.10 - ATHSCL HEART DISEASE OF [place] CORONARY ARTERY W/O ANG PCTRS Status: Chronic Comment: stable (3) CHF (congestive heart failure) Code(s): I50.9 - HEART FAILURE, UNSPECIFIED Status: Chronic Comment: stable (4) HTN (hypertension) Code(s): I10 - ESSENTIAL (PRIMARY) HYPERTENSION Status: Chronic Comment: Monitor vital signs, titrate antihypertensives as needed - Plan * . Review of Systems - Review of Systems Constitutional: negative: fever, chills, sweats, weakness, malaise Respiratory: negative: Cough, Shortness of Breath, SOB with Excertion, Pleuritic Pain, Wheezing Cardiovascular: negative: chest pain, palpitations, orthopnea, paroxysmal nocturnal dyspnea, edema, light headedness Gastrointestinal: Abdominal Pain. negative: Nausea, Vomiting, Diarrhea, Constipation, Melena, Hematochezia Genitourinary: negative: Dysuria, Frequency, Incontinence, Hematuria, Retention - Medications/Allergies Allergies/Adverse Reactions: Allergies Allergy/AdvReac Type Severity Reaction Status Date / Time erythromycin base Allergy Verified 05/16/17 06:12 Penicillins Allergy Verified 05/16/17 06:12 Medications: Current Medications Aspirin (Aspirin) 325 mg PO DAILY PRN PRN Reason: Pain Famotidine (Pepcid) 20 mg SLOW IVP Q12HR [facility] Last Admin: 09/23/17 09:36 Dose: 20 mg Levofloxacin 500 mg/ Device 100 mls @ 100 mls/hr IVPB 1830 [facility] Last Admin: 09/22/17 17:28 Dose: 100 mls Sodium Chloride (Normal Saline 0.9%) 1,000 mls @ 75 mls/hr IV .[id number] [facility] Last Admin: 09/23/17 03:52 Dose: Not Given Lisinopril (Zestril) 10 mg PO DAILY [facility] Last Admin: 09/23/17 09:37 Dose: 10 mg Metoprolol Succinate (Toprol Xl) 25 mg PO DAILY [facility] Last Admin: 09/23/17 09:37 Dose: 25 mg Morphine Sulfate (Morphine) 4 mg SLOW IVP Q4H PRN PRN Reason: Severe Pain (7-10) Last Admin: 09/22/17 06:20 Dose: 4 mg
[2017-09-23] MEDS: Pancrelipase DR 12000 1 CAP PO SCH ×2 (13:01→17:54)
[2017-09-23] MEDS: Acetaminophen 325 MG TAB PO PRN ×2 (17:54→22:01)
--- NOTE | 2017-09-23 18:29 | RAD ---
PORTABLE UPRIGHT FRONTAL CHEST RADIOGRAPH: 09/23/2017 HISTORY: Fever. COMPARISON: 06/30/2015 FINDINGS: Increased linear interstitial density noted, stable. Midline sternotomy wires and prominence of the cardiac silhouette is stable as well. There is no pneumothorax, pleural fluid, focal consolidation, or alveolar edema. IMPRESSION: Stable appearance of the chest. POS: AMALIAH
[2017-09-24] MEDS: Sodium Chloride 0.9% 1,000 ML IV SCH ×2 (04:57→11:22)
[2017-09-24 05:53] LABS: ALT (SGPT) 10 U/L (8-55); AST (SGOT) 11 U/L (5-34); Albumin 3.6 g/dL (3.4-4.8); Alkaline Phosphatase 48 U/L (40-150); Anion Gap 12 mmol/L (10-20); BUN (Urea Nitrogen) 8 mg/dL (9.8-20.1); Calc. Creatinine Clearance 71 mL/min (70-130); Calcium 8.6 mg/dL (7.8-10.44); Carbon Dioxide 20 mmol/L (23-31); Chloride 107 mmol/L (98-107); Estimated GFR-MDRD Greater than 90; Globulin 2.2 g/dL (2.4-3.5); Glucose 130 mg/dL (83-110); Potassium 3.4 mmol/L (3.5-5.1); Protein, Total 5.8 g/dL (6.0-8.3); Sodium 136 mmol/L (136-145)
[2017-09-24 06:16] LABS: Band 32 % (5-11); Hemoglobin 9.3 g/dL (12.0-16.0); Lymphocytes 4 % (21-51); MDiff Complete? YES; Mean Corpuscular HGB CONC 33.8 g/dL (32.0-36.0); Mean Corpuscular Hemoglobin 36.1 pg (27.0-31.0); Mean Platelet Volume 8.1 fL (7.4-10.4); Monocytes 3 % (0-10); Neutrophil 61 % (42-75); PLT Morphology Comment Appears Adequate; Platelet Count 241 thou/uL (130-400); RBC Distribution Width 14.4 % (11.5-14.5); Red Blood Cell (RBC) Count 2.59 mill/uL (4.20-5.40); White Blood Cell (WBC) Count 11.4 thou/uL (4.8-10.8)
[2017-09-24] MEDS: Acetaminophen 325 MG TAB PO PRN ×4 (07:14→21:20)
[2017-09-24] MEDS: Famotidine/PF 20 mg/2ml Vial SLOW IVP SCH (08:48)
[2017-09-24] MEDS: Cyanocobalamin (Vitamin B-12) 1,000 MCG TAB PO SCH (08:48)
[2017-09-24] MEDS: Atorvastatin Calcium 20 MG TAB PO SCH ×2 (08:48→09:01)
[2017-09-24] MEDS: Lisinopril 10 MG TAB PO SCH (08:48)
[2017-09-24] MEDS: Pancrelipase DR 12000 1 CAP PO SCH ×3 (08:49→18:06)
[2017-09-24] MEDS ORDERED: Docusate 100 MG CAP PO PRN (09:00)
--- NOTE | 2017-09-24 09:37 | PRG ---
DATE OF SERVICE: 09/24/2017 SUBJECTIVE: Ms. Ovalle has no new subjective complaints. She says her abdominal pain has significa ntly improved. She has not had a bowel movement yet. She is tolerating her liquid diet just fine. She did start spiking some fevers yesterday afternoon and then again last night and has been put on l evofloxacin. PHYSICAL EXAMINATION: VITAL SIGNS: Temperature 101, pulse 126, blood pressure 173/82, 93% oxygen saturation on room air. GENERAL: No acute distress. HEART: Regular, tachycardia. LUNGS: Clear to auscultation bilaterally. ABDOMEN: Bowel sounds present, soft, and nontender to palpation today. EXTREMITIES: No peripheral edema. LABORATORY STUDIES: WBC 11.4, hemoglobin 9.3, platelets 241. Sodium 136, potassium 3.4, BUN 8, crea tinine 0.60. IMAGING STUDIES: Chest x-ray showed stable appearance with some linear interstitial density, which i s stable. ASSESSMENT AND PLAN: 1. Acute on chronic pancreatitis, appears to have resolved. 2. Pancreatic duct calculus. Stick with plan for referral back to Dr. Mckee in [place] within the next few weeks. 3. Fever. This is new over the past day. There are no other symptoms to link this fever to. She h as been started on empiric levofloxacin. I see blood cultures have been drawn. Further workup and m anagement per the primary service. I do think that her fever is related to her pancreatitis or pancreatic duct calculus. The pancreatit is appears to be resolving symptomatically. We will go ahead and advance her diet as tolerated today .
--- NOTE | 2017-09-24 14:56 | EKG ---
Test Reason : ROUTINE Blood Pressure : / mmHG Vent. Rate : 064 BPM Atrial Rate : 064 BPM P-R Int : 178 ms QRS Dur : 086 ms QT Int : 446 ms P-R-T Axes : 000 -27 -02 degrees QTc Int : 460 ms Normal sinus rhythm Minimal voltage criteria for LVH, may be normal variant Septal infarct (cited on or before 16-MAY-2017) Abnormal ECG When compared with ECG of 16-MAY-2017 03:36, Premature ventricular complexes are no longer Present Questionable change in initial forces of Septal leads Confirmed by JACQUI MEDRANO ([id number]) on 09/24/2017 2:55:58 PM Referred By: Confirmed By:JACQUI MEDRANO
--- NOTE | 2017-09-24 16:52 | PDOC.PN ---
- Subjective Encounter Start Date: 09/24/17 Encounter Start Time: 16:50 Pt seen for followup re: sepsis. Continues to have fevers, no chest pain or shortness of breath. c/o abdo discomfort after eating solid diet. - Objective Resuscitation Status: Resuscitation Status FULL:Full Resuscitation MAR Reviewed: Yes Vital Signs & Weight: Vital Signs (12 hours) Temp Pulse Resp BP BP Pulse Ox 09/24/17 15:18 98.1 F 62 22 H 144/68 H 94 L 09/24/17 11:03 98 F 87 24 H 99/60 97 09/24/17 08:48 173/82 H 09/24/17 08:00 101 F H 126 H 22 H 93 L 09/24/17 07:06 101 F H 126 H 22 H 170/92 H 93 L Weight Admit Weight 156 lb 5.488 oz Weight 156 lb 5.488 oz I&O: 09/23/17 09/24/17 09/25/17 06:59 06:59 06:59 Intake Total 2014 2345 180 Balance 2014 2345 180 Result Diagrams: 09/24/17 04:43 09/24/17 04:43 Additional Labs: labs reviewed by me Phys Exam - Physical Examination Constitutional: NAD HEENT: moist MMs, sclera anicteric, oral pharynx no lesions, 2+ tonsils Neck: no nodes, no JVD, supple, full ROM Respiratory: no wheezing, no rales, no rhonchi, clear to auscultation bilateral Cardiovascular: RRR, no rub S1, s2 Gastrointestinal: soft, no distention, positive bowel sounds Mild epigastric tenderness, no guarding/rigidity Neurological: moves all 4 limbs Psychiatric: normal affect, A&O x 3 Dx/Plan (1) Sepsis Code(s): A41.9 - SEPSIS, UNSPECIFIED ORGANISM Status: Acute Comment: Unclear source. Add meropenem, await cultures. Discussed with pt re: risk of cross-reactivity. Her allergy to penicillin consists only of rash, no airway compromise. (2) Acute pancreatitis Code(s): K85.90 - ACUTE PANCREATITIS WITHOUT NECROSIS OR INFECTION, UNSP Status: Acute Comment: Improving, lipase normal. Pt was advanced to regular diet but could not tolerate it, will switch back to full fluid diet (3) CAD (coronary artery disease) Code(s): I25.10 - ATHSCL HEART DISEASE OF [place] CORONARY ARTERY W/O ANG PCTRS Status: Chronic Comment: stable (4) CHF (congestive heart failure) Code(s): I50.9 - HEART FAILURE, UNSPECIFIED Status: Chronic Comment: stable (5) HTN (hypertension) Code(s): I10 - ESSENTIAL (PRIMARY) HYPERTENSION Status: Chronic Comment: Monitor vital signs, titrate antihypertensives as needed (6) Chronic anemia Code(s): D64.9 - ANEMIA, UNSPECIFIED Status: Chronic Comment: Pt was supposed to get IM iron injection as outpatient tomorrow, will administer it during this hospitalization - Plan * . Replace potassium Review of Systems - Review of Systems Constitutional: fever, chills. negative: sweats, malaise Respiratory: negative: Cough, Shortness of Breath, SOB with Excertion, Wheezing Cardiovascular: negative: chest pain, palpitations, orthopnea, paroxysmal nocturnal dyspnea, edema, light headedness Gastrointestinal: Nausea, Abdominal Pain. negative: Vomiting, Diarrhea, Constipation, Melena, Hematochezia Genitourinary: negative: Dysuria, Frequency, Incontinence, Hematuria, Retention Skin: negative: Rash, Lesions, Bhupinder, Bruising - Medications/Allergies Allergies/Adverse Reactions: Allergies Allergy/AdvReac Type Severity Reaction Status Date / Time erythromycin base Allergy Verified 05/16/17 06:12 Penicillins Allergy Verified 05/16/17 06:12 Medications: Current Medications Acetaminophen (Tylenol) 650 mg PO Q4H PRN PRN Reason: Headache/Fever or Pain Last Admin: 09/24/17 15:29 Dose: 650 mg Lipase/Protease/Amylase ([place] [id number]) 2 cap PO TID-WM [facility] Last Admin: 09/24/17 15:28 Dose: Not Given Aspirin (Aspirin) 325 mg PO DAILY PRN PRN Reason: Pain Atorvastatin Calcium (Lipitor) 20 mg PO DAILY [facility] Last Admin: 09/24/17 09:01 Dose: Not Given Cholecalciferol (Vitamin D3) 4,000 units PO DAILY [facility] Last Admin: 09/24/17 08:48 Dose: 4,000 units Cyanocobalamin (Vitamin B-12) 1,000 mcg PO DAILY [facility] Last Admin: 09/24/17 08:48 Dose: 1,000 mcg Docusate Sodium (Colace) 100 mg PO DAILYPRN PRN PRN Reason: CONSTIPATION Famotidine (Pepcid) 20 mg SLOW IVP Q12HR [facility] Last Admin: 09/24/17 08:48 Dose: 20 mg Levofloxacin 500 mg/ Device 100 mls @ 100 mls/hr IVPB 1830 [facility] Last Admin: 09/23/17 17:54 Dose: 100 mls Sodium Chloride (Normal Saline 0.9%) 1,000 mls @ 75 mls/hr IV .[id number] [facility] Last Admin: 09/24/17 11:22 Dose: 1,000 mls Meropenem 1 gm/ Sodium (Chloride) 100 mls @ 200 mls/hr IVPB Q8H [facility] Iron Dextran (Imferon, Infed) 25 mg IM ONE [facility] Lisinopril (Zestril) 10 mg PO DAILY [facility] Last Admin: 09/24/17 08:48 Dose: 10 mg Metoprolol Succinate (Toprol Xl) 25 mg PO DAILY [facility] Last Admin: 09/24/17 08:49 Dose: 25 mg Morphine Sulfate (Morphine) 4 mg SLOW IVP Q4H PRN PRN Reason: Severe Pain (7-10) Last Admin: 09/22/17 06:20 Dose: 4 mg Pantoprazole Sodium (Protonix) 40 mg PO Q24HR [facility] Last Admin: 09/24/17 08:48 Dose: 40 mg Potassium Chloride (K-Dur) 40 meq PO ONE [facility]
[2017-09-24] MEDS ORDERED: Potassium Chloride 20 MEQ TAB PO SCH (17:00)
[2017-09-24] MEDS: MEROPENEM 1 GM/50 ML 1 GM in Premix Bag 1 BAG IVPB SCH (18:18)
[2017-09-24] MEDS: Famotidine 20 MG TAB PO SCH (21:20)
[2017-09-25] MEDS: MEROPENEM 1 GM/50 ML 1 GM in Premix Bag 1 BAG IVPB SCH ×3 (00:10→17:51)
[2017-09-25] MEDS: Sodium Chloride 0.9% 1,000 ML IV SCH ×2 (00:10→15:35)
[2017-09-25 04:25] LABS: #Eosinphils 0.1 thou/uL (0.0-0.7); #Monocytes 0.8 thou/uL (0.11-0.59); #Neutrophils 6.4 thou/uL (1.40-6.50); %Basophils 0.4 % (0.0-1.0); %Eosinophils 0.8 % (0.0-10.0); %Monocytes 9.9 % (0.0-10.0); %Neutrophils 76.9 % (42.0-75.0); Hemoglobin 8.5 g/dL (12.0-16.0); Mean Corpuscular HGB CONC 33.2 g/dL (32.0-36.0); Mean Corpuscular Hemoglobin 35.9 pg (27.0-31.0); Mean Platelet Volume 8.3 fL (7.4-10.4); Platelet Count 236 thou/uL (130-400); RBC Distribution Width 14.3 % (11.5-14.5); Red Blood Cell (RBC) Count 2.37 mill/uL (4.20-5.40); White Blood Cell (WBC) Count 8.3 thou/uL (4.8-10.8)
[2017-09-25 04:41] LABS: ALT (SGPT) 12 U/L (8-55); AST (SGOT) 13 U/L (5-34); Albumin 3.3 g/dL (3.4-4.8); Alkaline Phosphatase 47 U/L (40-150); Anion Gap 9 mmol/L (10-20); BUN (Urea Nitrogen) 8 mg/dL (9.8-20.1); Bilirubin, Total 1.4 mg/dL (0.2-1.2); Calc. Creatinine Clearance 78 mL/min (70-130); Calcium 8.4 mg/dL (7.8-10.44); Carbon Dioxide 23 mmol/L (23-31); Chloride 107 mmol/L (98-107); Estimated GFR-MDRD Greater than 90; Globulin 2.1 g/dL (2.4-3.5); Glucose 115 mg/dL (83-110); Potassium 3.9 mmol/L (3.5-5.1); Protein, Total 5.4 g/dL (6.0-8.3); Sodium 135 mmol/L (136-145)
[2017-09-25] MEDS: Pancrelipase DR 12000 1 CAP PO SCH ×3 (08:50→17:51)
[2017-09-25] MEDS: Atorvastatin Calcium 20 MG TAB PO SCH (08:51)
[2017-09-25] MEDS: Cyanocobalamin (Vitamin B-12) 1,000 MCG TAB PO SCH (08:52)
[2017-09-25] MEDS: Lisinopril 10 MG TAB PO SCH (08:53)
[2017-09-25] MEDS: Famotidine 20 MG TAB PO SCH ×2 (08:53→22:09)
--- NOTE | 2017-09-25 12:00 | PDOC.PN ---
- Subjective Encounter Start Date: 09/25/17 Encounter Start Time: 08:00 Pt seen for followup re: sepsis. Has abdo pain after eating. Had low-grade fevers yesterday. - Objective Resuscitation Status: Resuscitation Status FULL:Full Resuscitation MAR Reviewed: Yes Vital Signs & Weight: Vital Signs (12 hours) Temp Pulse Resp BP BP Pulse Ox 09/25/17 11:50 98.5 F 79 16 165/72 H 94 L 09/25/17 09:03 99.6 F 80 16 163/75 H 93 L 09/25/17 08:53 163/75 H 09/25/17 07:15 99.6 F 80 16 09/25/17 00:00 99.1 F 78 16 136/63 93 L Weight Admit Weight 156 lb 5.488 oz Weight 156 lb 5.488 oz I&O: 09/24/17 09/25/17 09/26/17 06:59 06:59 06:59 Intake Total 2345 540 Balance 2345 540 Result Diagrams: 09/25/17 03:20 09/26/17 04:21 Additional Labs: Labs reviewed by me Phys Exam - Physical Examination Constitutional: NAD HEENT: moist MMs Neck: supple Respiratory: clear to auscultation bilateral S1, S2 Gastrointestinal: soft Mild epigastric tenderness, no guarding or rigidity Neurological: non-focal Psychiatric: normal affect Dx/Plan (1) Sepsis Code(s): A41.9 - SEPSIS, UNSPECIFIED ORGANISM Status: Acute Comment: Continue IV meropenem, await cultures. (2) Acute pancreatitis Code(s): K85.90 - ACUTE PANCREATITIS WITHOUT NECROSIS OR INFECTION, UNSP Status: Acute Comment: Pt is on full fluid diet due to abdo pain (3) CAD (coronary artery disease) Code(s): I25.10 - ATHSCL HEART DISEASE OF [place] CORONARY ARTERY W/O ANG PCTRS Status: Chronic Comment: stable (4) CHF (congestive heart failure) Code(s): I50.9 - HEART FAILURE, UNSPECIFIED Status: Chronic Comment: stable (5) HTN (hypertension) Code(s): I10 - ESSENTIAL (PRIMARY) HYPERTENSION Status: Chronic Comment: Monitor vital signs, titrate antihypertensives as needed (6) Chronic anemia Code(s): D64.9 - ANEMIA, UNSPECIFIED Status: Chronic Comment: Pt to get IM iron today - Plan * . Review of Systems - Review of Systems Constitutional: fever Cardiovascular: negative: chest pain, palpitations, orthopnea, paroxysmal nocturnal dyspnea, edema, light headedness Gastrointestinal: Abdominal Pain. negative: Nausea, Vomiting, Diarrhea, Constipation, Melena, Hematochezia - Medications/Allergies Allergies/Adverse Reactions: Allergies Allergy/AdvReac Type Severity Reaction Status Date / Time erythromycin base Allergy Verified 05/16/17 06:12 Penicillins Allergy Verified 05/16/17 06:12 Medications: Current Medications Acetaminophen (Tylenol) 650 mg PO Q4H PRN PRN Reason: Headache/Fever or Pain Last Admin: 09/24/17 21:20 Dose: 650 mg Lipase/Protease/Amylase ([place] [id number]) 2 cap PO TID-[facility] Last Admin: 09/25/17 11:44 Dose: 2 cap Aspirin (Aspirin) 325 mg PO DAILY PRN PRN Reason: Pain Atorvastatin Calcium (Lipitor) 20 mg PO DAILY [facility] Last Admin: 09/25/17 08:51 Dose: 20 mg Cholecalciferol (Vitamin D3) 4,000 units PO DAILY [facility] Last Admin: 09/25/17 08:51 Dose: 4,000 units Cyanocobalamin (Vitamin B-12) 1,000 mcg PO DAILY [facility] Last Admin: 09/25/17 08:52 Dose: 1,000 mcg Docusate Sodium (Colace) 100 mg PO DAILYPRN PRN PRN Reason: CONSTIPATION Famotidine (Pepcid) 20 mg PO BID [facility] Last Admin: 09/25/17 08:53 Dose: 20 mg Levofloxacin 500 mg/ Device 100 mls @ 100 mls/hr IVPB 1830 [facility] Last Admin: 09/24/17 18:55 Dose: 100 mls Sodium Chloride (Normal Saline 0.9%) 1,000 mls @ 75 mls/hr IV .[id number] [facility] Last Admin: 09/25/17 00:10 Dose: 1,000 mls Meropenem 1 gm/ Device 50 mls @ 200 mls/hr IVPB 1000,1800,2359 [facility] Last Admin: 09/25/17 10:24 Dose: 50 mls Iron Dextran (Imferon, Infed) 25 mg IM ONE [facility] Stop: 09/27/17 17:31 Lisinopril (Zestril) 10 mg PO DAILY [facility] Last Admin: 09/25/17 08:53 Dose: 10 mg Metoprolol Succinate (Toprol Xl) 25 mg PO DAILY [facility] Last Admin: 09/25/17 08:53 Dose: 25 mg Morphine Sulfate (Morphine) 4 mg SLOW IVP Q4H PRN PRN Reason: Severe Pain (7-10) Last Admin: 09/22/17 06:20 Dose: 4 mg Pantoprazole Sodium (Protonix) 40 mg PO Q24HR [facility] Last Admin: 09/25/17 09:01 Dose: 40 mg
[2017-09-25] MEDS ORDERED: Sodium Ferric Gluconate 250 MG in Sodium Chloride 0.9% 250 ML 250 ML IVPB SCH (15:00)
[2017-09-25] MEDS ORDERED: hydrALAZINE 20 MG/ML VIAL SLOW IVP PRN (16:36)
[2017-09-25] MEDS ORDERED: Polyethylene Glycol 3350 17 GM Packet PO SCH (18:00)
--- NOTE | 2017-09-25 18:38 | PRG ---
DATE OF SERVICE: 09/25/2017 SUBJECTIVE: Ms. Ovalle says she feels about the same. Her fever appears to be resolving. It has been below 100 for over 24 hours now. She is not having any nausea or vomiting. She does continue to have postprandial epigastric pain. She is tolerating a full liquid diet, but felt she had too much pain when trying to advance to regular diet yesterday. PHYSICAL EXAMINATION: VITAL SIGNS: Temperature 98.8, pulse 75, blood pressure 179/76, 92% oxygen saturation on room air. GENERAL: No acute distress. HEART: Regular rate and rhythm. LUNGS: Clear to auscultation bilaterally. ABDOMEN: Bowel sounds present, soft, nontender to palpation in the lower abdomen. Some tenderness to palpation in the epigastrium, but no guarding or rebound tenderness. EXTREMITIES: No peripheral edema. LABORATORY STUDIES: WBC back down to 8.3, hemoglobin 8.5, platelets 236. Sodium 135, potassium 3.9, BUN 8, creatinine 0.55, total bilirubin 1.4, alkaline phosphatase 47, AST 13, ALT 12, albumin 3.3, lipase only 21. ASSESSMENT AND PLAN: 1. Acute on chronic pancreatitis, resolving. 2. Pancreatic duct calculus. 3. Fever. I had a long discussion with the patient and her family tonight. I do not really think the fever was related to her pancreatitis. Lipase normalized by yesterday and has remained normal. My sense is that she is back to her baseline chronic pancreatitis pain. She is tolerating a liquid diet. I think that if fever has not recurred and there is no other significant change in clinical status by tomorrow, she could potentially be discharged from the hospital. I have discussed her case with her primary senior materials scientist, Dr. Cindy Mariano. We are working on arranging for her to see Dr. Mckee in [place] for repeat ERCP. There is a possibility that he could do this as early as . So, I think the best course would likely be hospital discharge tomorrow, so she could get down to [place] for the procedure on . ANTONIA
[2017-09-25] MEDS: Docusate 100 MG CAP PO SCH (22:09)
[2017-09-26] MEDS: MEROPENEM 1 GM/50 ML 1 GM in Premix Bag 1 BAG IVPB SCH ×2 (01:06→09:10)
[2017-09-26] MEDS: Sodium Chloride 0.9% 1,000 ML IV SCH (05:15)
[2017-09-26 05:18] LABS: ALT (SGPT) 12 U/L (8-55); AST (SGOT) 11 U/L (5-34); Albumin 3.3 g/dL (3.4-4.8); Alkaline Phosphatase 49 U/L (40-150); Anion Gap 10 mmol/L (10-20); BUN (Urea Nitrogen) 6 mg/dL (9.8-20.1); Bilirubin, Total 1.3 mg/dL (0.2-1.2); Calc. Creatinine Clearance 76 mL/min (70-130); Calcium 8.7 mg/dL (7.8-10.44); Carbon Dioxide 25 mmol/L (23-31); Chloride 106 mmol/L (98-107); Estimated GFR-MDRD Greater than 90; Globulin 2.1 g/dL (2.4-3.5); Glucose 127 mg/dL (83-110); Protein, Total 5.4 g/dL (6.0-8.3); Sodium 137 mmol/L (136-145)
--- NOTE | 2017-09-26 08:09 | PRG ---
DATE OF SERVICE: 09/26/2017 SUBJECTIVE: Ms. Ovalle is feeling pretty well this morning. She got good sleep. Abdominal discomf ort is minimal. No nausea or vomiting. No more fevers overnight. OBJECTIVE: VITAL SIGNS: Temperature 98 degrees Fahrenheit, pulse 64, blood pressure 147/70, 94% oxygen saturati on on room air. GENERAL: No acute distress. HEART: Regular rate and rhythm. LUNGS: Clear to auscultation bilaterally. ABDOMEN: Soft and nontender to palpation. EXTREMITIES: No peripheral edema. LABORATORY STUDIES: Sodium 137, potassium 4.0, BUN 6, creatinine 0.56, glucose 127, total bilirubin 1.3, alkaline phosphatase 49, AST 11, ALT 12, lipase from yesterday was 21. ASSESSMENT AND PLAN: 1. Acute on chronic pancreatitis, resolving. 2. Pancreatic duct calculus. 3. Fever, resolved. I think the patient is stable for hospital discharge today. We are trying to work on arranging for h er to get out to [place] for ERCP with Dr. Mckee, possibly as soon as tomorrow. I would recommend she be discharged from the hospital on her liquid diet and slowly advance as tolerated, and we will b e contacting her later today with arrangements for her procedure.
[2017-09-26] MEDS: Pancrelipase DR 12000 1 CAP PO SCH ×2 (08:47→11:51)
[2017-09-26] MEDS: Cyanocobalamin (Vitamin B-12) 1,000 MCG TAB PO SCH (08:48)
[2017-09-26] MEDS: Atorvastatin Calcium 20 MG TAB PO SCH (08:48)
[2017-09-26] MEDS: Famotidine 20 MG TAB PO SCH (08:49)
[2017-09-26] MEDS: Lisinopril 10 MG TAB PO SCH (08:49)
[2017-09-26] MEDS: Docusate 100 MG CAP PO SCH (08:49)
[2017-09-26 08:50] VITALS: BP 169/71
[2017-09-26] MEDS ORDERED: Polyethylene Glycol 3350 17 GM Packet PO SCH (09:00)
[2017-09-26 09:04] VITALS: TEMP 98.2
--- NOTE | 2017-09-26 13:12 | DIS ---
DATE OF ADMISSION: 09/21/2017 DATE OF DISCHARGE: 09/26/2017 PRIMARY CARE PROVIDER: Arianna Clarke D.O. DISCHARGE DIAGNOSES: 1. Acute pancreatitis. 2. Sepsis. CONDITION OF PATIENT ON THE DAY OF DISCHARGE: Stable. I assessed Ms. Ovalle on the day of discharg e. She denies any chest pain. She denies any fevers or chills. She denies any nausea or vomiting. Vital signs are stable. S1 and S2 are heard, regular. Lungs are clear to auscultation bilaterally. CONSULTATION DURING THIS HOSPITALIZATION: Gastroenterology, Dr. Kory Harding. DISCHARGE MEDICATIONS: In addition to her preadmission home medications as dictated on history and p hysical note dated 09/11/[address] Kory Santana, she is being discharged home on levofloxacin 500 mg daily for 5 more days. HOSPITAL COURSE: Ms. Ovalle is a pleasant 87-year-old lady who was admitted to [facility] on 09/21/2017 for abdominal pain secondary to recurrent acute pancreatitis. She also h ad a pancreatic duct calculus. She was treated with intravenous fluids and pain medications. She was advised to follow up with her pumping supervisor at [facility], Dr. Mckee, since we do not have a specific pancreatic du ctal intervention expertise at this facility. During this hospitalization, she also spiked fevers. Her urinalysis at the time of admission was sug gestive of urinary tract infection; therefore she was started on antibiotics. Her leukocytosis resol ananda by 09/25/2017. She is being discharged home on oral levofloxacin. Final urine cultures did not show any significant growth. Preliminary blood cultures were negative at 48 hours. She is advised t o follow up with her primary care provider for final blood culture result. On 09/25/2017, she had a white count of 8,300, hemoglobin 8.5, platelet count 236, normal electrolytes and creatinine 0.56. T otal bilirubin was 1.3, decreasing from a peak of 2.0 on 09/24/2017. Many thanks for allowing me to participate in your patient's care. Please feel free to contact me wi th any questions or concerns. DISCHARGE DESTINATION: Home. TOTAL AMOUNT OF TIME SPENT COORDINATING THIS DISCHARGE: 33 minutes.
--- NOTE | 2017-09-29 09:17 | PQF ---
[employer] Crystal Reports Winform ViewerALINA PUGH DAVID [id number] SURG [id number] CLINICAL DOCUMENTATION CLARIFICATION FORM: POST DISCHARGE Please exercise your independent, professional judgment in responding to the clarification form. Clinical indicators are provided on the bottom of this form for your review. Thank you. Diagnosis: __SEPSIS Present on Admission (POA): [ ] Yes [ ] No [ X ] Unable to determine Coding guidelines require hospitals to identify whether a diagnosis was present on admission (POA) or not. To accurately assign the appropriate POA indicator, this information must be clearly documented within the medical record. CLINICAL INDICATORS - SIGNS / SYMPTOMS / LABS Sepsis documented on Discharge Summary under Discharge Diagnoses, spiked fevers , urinalysis on admission was suggestive of a UTI - DS 09/26/17 Glucose 128 09/21/17, WBC 7.3 09/21/17, WBC 11.4 09/24/17, UA moderate leukocytes, 7-10 WBC 0-3 RBC, no bacteria seen 09/21/17.- Labs RISK FACTORS: Acute pancreatitis - PN 09/22/17 TREATMENT: discharged home on levofloxacin - DS 09/26/17 Levofloxacin IV 09/22/17 (This form is maintained as a part of the permanent medical record) 2014 [employer] All Rights Reserved Jenny Colindres, CCS, BELT SANDER, CASC [email or web address]
== END 2017-09-26 12:38 | disposition home or self-care (01) | DRG 438 ==
LOC: ERS 12:07 → SURG A 14:55
PROVIDERS: ADMIT Internal Medicine; ATTEND Internal Medicine
DX: K85.90 Acute pancreatitis without necrosis or infection, unspecified (principal); A41.9 Sepsis, unspecified organism; N39.0 Urinary tract infection, site not specified; K86.1 Other chronic pancreatitis; I50.9 Heart failure, unspecified; I25.10 Atherosclerotic heart disease of native coronary artery without angina pectoris; I11.0 Hypertensive heart disease with heart failure; D64.9 Anemia, unspecified; K86.89 Other specified diseases of pancreas; K21.9 Gastro-esophageal reflux disease without esophagitis; Z90.710 Acquired absence of both cervix and uterus; Z95.1 Presence of aortocoronary bypass graft; Z88.1 Allergy status to other antibiotic agents; Z88.0 Allergy status to penicillin
CPT/HCPCS: 36415; 71045; 71046; 74177; 80053; 81003; 81015; 83690; 85025; 87040; 87086; 93005; 93010; 96361; 96365; 96375; 96376; J0360; J0696; J1750; J1956; J2185; J2270; J2916; J7050; Q0162; S0028

== ENCOUNTER 2017-10-10 07:36 | Day surgery (SDC) | payer MEDICARE ==
[2017-10-10] MEDS ORDERED: diphenhydrAMINE 25 MG CAP PO SCH (08:30)
[2017-10-10] MEDS ORDERED: Acetaminophen 500 MG TAB PO SCH (08:30)
[2017-10-10 08:42] VITALS: BMI 26.4
[2017-10-10 13:04] LABS: Hemoglobin 6.7 g/dL (12.0-16.0)
[2017-10-10 16:19] VITALS: BP 122/60; TEMP 99.1
[2017-10-10 16:44] LABS: Hemoglobin 8.1 g/dL (12.0-16.0); Mean Platelet Volume 7.4 fL (7.4-10.4); Platelet Count 306 thou/uL (130-400); Red Blood Cell (RBC) Count 2.38 mill/uL (4.20-5.40); White Blood Cell (WBC) Count 8.8 thou/uL (4.8-10.8)
[2017-10-10 17:22] LABS: #Basophils 0.1 thou/uL (0.0-0.2); #Eosinphils 0.1 thou/uL (0.0-0.7); #Lymphocytes 2.1 thou/uL (1.20-3.40); #Monocytes 1.1 thou/uL (0.11-0.59); #Neutrophils 5.3 thou/uL (1.40-6.50); %Basophils 1.6 % (0.0-1.0); %Eosinophils 1.1 % (0.0-10.0); %Lymphocytes 24.2 % (21.0-51.0); %Monocytes 12.9 % (0.0-10.0); %Neutrophils 60.3 % (42.0-75.0); Anisocytosis SLIGHT = 6-15 cells (100X) (0-5/hpf); Large Platelets SLIGHT; MDiff Complete? YES; Ovalocytes SLIGHT = 2-5 cells (100X) (0-1/hpf); PLT Morphology Comment Appears Adequate; Polychromasia SLIGHT = 2-3 cells (100X) (0-2/hpf)
== END 2017-10-10 17:11 | disposition home or self-care (01) ==
LOC: ONC/OP 07:36 → ONC 07:36 → ONC/OP 17:11
PROVIDERS: ATTEND Internal Medicine Medical Oncology
DX: D64.9 Anemia, unspecified (principal)
CPT/HCPCS: 36415; 36430; 85014; 85018; 86850; 86900; 86901; P9016